=== PATIENT | male | born 1985 | race Asian ===

== ENCOUNTER 2019-03-01 10:24 | Emergency (ER) | payer BC ==
[~2019-03-01] VITALS: Ht 185.4 cm; Wt 108.9 kg
[2019-03-01 10:45] VITALS: BP 110/57
== END 2019-03-01 10:45 ==
LOC: ER 10:24
DX: J06.9 Acute upper respiratory infection, unspecified (principal); F10.10 Alcohol abuse, uncomplicated; Y90.9 Presence of alcohol in blood, level not specified